=== PATIENT | male | born 1965 | race Two or more races ===

== ENCOUNTER 2016-08-23 14:04 | Emergency (ER) | payer OTHER ==
--- NOTE | 2016-08-23 15:25 | RAD ---
HISTORY: Chronic knee pain COMPARISON: None. TECHNIQUE: four views of Left knee. FINDINGS: Bones: No fracture or dislocation. Medial and patellofemoral minimal spurring. Joints: Normal. Soft tissue: No joint effusion. IMPRESSION: No fracture or dislocation. Minimal degenerative change without fracture or dislocation.
== END 2016-08-23 15:55 | disposition home or self-care (01) ==
LOC: ED 14:04
DX: M25.562 Pain in left knee (principal)